=== PATIENT | male | born 1965 | race Caucasian/White ===

== ENCOUNTER 2017-03-03 08:15 | Emergency (ER) ==
[2017-03-03 08:23] VITALS: BP 116/79; TEMP 100.5; BMI 25.0
[2017-03-03] MEDS ORDERED: TORADOL IM STA (08:32)
--- NOTE | 2017-03-03 09:21 | CT ---
EXAM: CT of the abdomen pelvis without contrast History: Lower back pain. Technique: Multiplanar CT images through the abdomen pelvis were obtained without the administration of IV contrast Findings: Lung bases are clear. No acute osseous abnormalities. No discrete gallstones identified by CT. Mild atherosclerotic vascular calcifications. No focal tung er or splenic lesions. 2 cm right renal cyst. Multiple left renal cysts with the largest measuring 3 cm. Bilateral nephrolithiasis with largest stone in the right kidney measuring [address] aghorn calculus in the left kidney measuring 2.4 cm and is located in the renal pelvis causing mild l eft hydronephrosis. There are no ureteral calculi. No peripancreatic inflammation. Adrenal glands a re unremarkable. No dilated loops of bowel. No free air and no ascites. No perirectal inflammation . No bladder wall thickening. Prostate is not enlarged. Impression: 1. Bilateral nephrolithiasis with staghorn calculus in the left renal pelvis causing mild left hydro nephrosis. 2. Bilateral renal cysts
--- NOTE | 2017-03-03 10:33 | ED.PDOC ---
General ED Provider: Dr. JOHN RAMIREZ Chief Complaint: Back Pain Stated Complaint: BACK PAIN Time Seen by Physician: 08:20 (SEEN WITH NURSING STAFF AT ALL TIMES ) Mode of Arrival: Walk-In Information Source: Patient Exam Limitations: No limitations Nursing and Triage Documentation Reviewed and Agree: Yes Reviewed sepsis parameters & appropriate labs ordered?: Yes System Inflammatory Response Syndrome: Not Applicable Sepsis Protocol: For patient's 13 years and over: Temp is 96.8 and below OR 101 and greater Pulse >90 BPM Resp >20/minute Acutely Altered Mental Status Are patient's symptoms suggestive of a new infection, such as: -Pneumonia -Skin, Soft Tissue -Endocarditis -UTI -Bone, Joint Infection -Implantable Device -Acute Abdominal Infection -Wound Infection -Meningitis -Blood Stream Catheter Infection -Unknown System Inflammatory Response Syndrome: Not Applicable (HISTORY OF RENAL STONE WITH SAME TYPE OF PAIN) Review of Systems - Review Of Systems Constitutional: Reports: No symptoms Eyes: Reports: No symptoms Ears, Nose, Mouth, Throat: Reports: No symptoms Respiratory: Reports: No symptoms Cardiac: Reports: No symptoms GI: Reports: No symptoms : Reports: Dysuria, Flank pain (LEFT) Musculoskeletal: Reports: No symptoms Skin: Reports: No symptoms Neurological: Reports: No symptoms Endocrine: Reports: No symptoms Hematologic/Lymphatic: Reports: No symptoms All Other Systems: Reviewed and Negative Past Medical History - Past Medical History Previously Healthy: Yes Endocrine: Reports: None Cardiovascular: Reports: None Respiratory: Reports: None Hematological: Reports: None Gastrointestinal: Reports: None Genitourinary: Reports: Kidney stones Neuro/Psych: Reports: None Musculoskeletal: Reports: None Cancer: Reports: None - Surgical History General Surgical History: Reports: None - Family History Family History: Reports: None - Social History Smoking Status: Current every day smoker, Heavy tobacco smoker Hx Substance Use: Yes (pot) Alcohol Screening: None Physical Exam - Physical Exam Appearance: Well-appearing, No pain distress, Well-nourished Eyes: SHASHA, EOMI, Conjunctiva clear ENT: Ears normal, Nose normal, Oropharynx normal Respiratory: Airway patent, Breath sounds clear, Breath sounds equal, Respirations nonlabored Cardiovascular: RRR, Pulses normal, No rub, No murmur GI/: Soft, Nontender, No masses, Bowel sounds normal, No Organomegaly Musculoskeletal: Normal strength, ROM intact, No edema, No calf tenderness Skin: Warm, Dry, Normal color Neurological: Sensation intact, Motor intact, Reflexes intact, Cranial nerves intact, Alert, Oriented Psychiatric: Affect appropriate, Mood appropriate Physician Notification - Case Discussed Physician Notified: MACKENZIE Time of Notification: 10:33 (MACKENZIE LADD WOULD LIKE PT'S PAIN CONTROLLED AND HAVE PT FOLLOW UP WITH HIM) Critical Care Note - Critical Care Note Total Time (mins): 0 Course - Course Hematology/Chemistry: 03/03/17 08:38 03/03/17 08:38 Orders, Labs, Meds: Lab Review 03/03/17 03/03/17 08:38 08:38 WBC 8.23 RBC 4.72 Hgb 14.6 Hct 42.2 MCV 89.4 MCH 30.9 MCHC 34.6 RDW Coeff of Hunter 13.1 Plt Count 177 Immature Gran % (Auto) 0.2 Neut % (Auto) 75.7 Lymph % (Auto) 15.4 [place] % (Auto) 8.1 Eos % (Auto) 0.0 Baso % (Auto) 0.6 Immature Gran # (Auto) 0.0 Neut # 6.2 Lymph # 1.3 [place] # 0.7 Eos # 0.0 Baso # 0.1 Sodium 134 L Potassium 4.0 Chloride 102 Carbon Dioxide 26 Anion Gap 10.0 BUN 12 Creatinine 1.18 H Estimated GFR (MDRD) 65.00 BUN/Creatinine Ratio 10.16 Glucose 101 H Calcium 9.0 Total Bilirubin 0.6 AST 17 ALT 15 Alkaline Phosphatase 74 Total Protein 6.5 Albumin 3.4 Globulin 3.1 Albumin/Globulin Ratio 1.10 Orders Category Date Time Status CBC W/ AUTO DIFF Stat LAB 03/03/17 08:38 Completed COMPREHENSIVE METABOLIC PANEL Stat LAB 03/03/17 08:38 Completed URINALYSIS C & S IF INDICATED Stat LAB 03/03/17 08:31 Uncollected Ketorolac Tromethamine [Toradol] MEDS 03/03/17 08:32 Discontinued 60 mg IM ONCE STA CT ABD/PEL WO RENAL STONE PROT Stat RADS 03/03/17 08:31 Completed Medications Discontinued Medications Generic Name Dose Route Start Last Admin Trade Name Freq PRN Reason Stop Dose Admin Ketorolac Tromethamine 60 mg 03/03/17 08:32 03/03/17 09:06 Toradol IM 03/03/17 08:33 60 mg ONCE STA Administration Vital Signs: Temp Pulse Resp BP Pulse Ox 03/03/17 08:16 100.5 F H 104 H 20 116/79 98 Departure - Departure Time of Disposition: 10:33 Disposition: HOME SELF-CARE Discharge Problem: Staghorn kidney stones Instructions: Renal Colic (ED), Kidney Stones (ED), Flank Pain (ED) Condition: Good Pt referred to PMD for follow-up: Yes Additional Instructions: Please call your Family Physician as soon as possible to schedule a follow-up appointment.CONTACT DOCTOR MACKENZIE I HAVE SPOKEN TO HIM HE IS WAITING FOR YOUR TO CONTACT HIM AND GET SEEN BY HIM. THIS STONE IS NOT A PASSABLE STONE. IF YOU DONT FOLLOW UP THE INSTRUCTION YOU CAN GET SERIOUS PROBLEMS LOSE THE KIDNEY. Prescriptions: Hydrocodone/Acetaminophen [[place] 10-325 Tablet] 1 each PO Q8HR #14 tablet Allergies/Adverse Reactions: Allergies hydrocodone [From Lortab] Adverse Reaction (Verified 03/03/17 08:25) Home Medications: Ambulatory Orders Hydrocodone/Acetaminophen [[place] 10-325 Tablet] 1 each PO Q8HR #14 tablet
== END 2017-03-03 11:10 | disposition home or self-care (01) ==
LOC: ED 08:15
DX: N20.0 Calculus of kidney (principal); Z87.442 Personal history of urinary calculi; F17.210 Nicotine dependence, cigarettes, uncomplicated
CPT/HCPCS: 36415; 74176; 80053; 81001; 85025; 87086; 96372; 99282